=== PATIENT | male | born 1990 | race Caucasian/White ===

== ENCOUNTER 2016-07-08 23:11 | Emergency (ER) | payer SELFPAY ==
[~2016-07-08] VITALS: Ht 172.7 cm; Wt 61.2 kg
[~2016-07-08 23:11] MED LIST: AMOXICILLIN500 MG PO; ATARAX25 MG PO; PREDNICOT10 MG PO
== END 2016-07-09 00:20 | disposition home or self-care (01) ==
LOC: ED 23:11
DX: S99.921A Unspecified injury of right foot, initial encounter (principal); F17.200 Nicotine dependence, unspecified, uncomplicated; W22.8XXA Striking against or struck by other objects, initial encounter; Y93.9 Activity, unspecified; Y92.9 Unspecified place or not applicable; Y99.9 Unspecified external cause status

== ENCOUNTER 2016-09-08 11:51 | Inpatient (IN) | payer SELFPAY ==
[~2016-09-08] VITALS: Ht 172.7 cm; Wt 60.9 kg
--- NOTE | ~2016-09-08 | O ---
[place], [place] OPERATIVE NOTE NAME: LOUIS PERALTA UNIT #: [id number] ROOM: 407 DOCTOR: GIO DONNELLY MD BIRTHDATE: [birth year] DOS: 09/08/2016 PREOPERATIVE DIAGNOSIS: Acute appendicitis. POSTOPERATIVE DIAGNOSIS: Acute appendicitis. PROCEDURE: Laparoscopic appendectomy. SURGEON: Gio Donnelly M.D. PERL SOFTWARE ENGINEER: REGINE. ANESTHESIA: General with endotracheal intubation. INDICATIONS FOR PROCEDURE: This is a 26-year-old gentleman, who comes into the Emergency Room with a history of right lower quadrant pain. A CAT scan showed the acute appendicitis. It was decided to take the patient to the operating room for a laparoscopic possible open appendectomy. The procedure and its complications explained to the patient in detail preoperatively. Complications that were discussed included but were not limited to bleeding, infection, hematoma/seroma/abscess formation, prolonged postoperative pain, damage to underlying vital structures and incisional hernia formation. He agreed to proceed. DESCRIPTION OF PROCEDURE: After identifying the patient, the patient was brought to the operating suite and laid in the supine position. After induction of general anesthesia, a Hodge catheter was inserted into the urinary bladder and the left upper extremity was stuck to the patient's side. The parts were then painted and draped in the usual sterile fashion. A timeout procedure was called. An incision above the umbilicus in a curvilinear fashion was made. The skin and the subcutaneous tissues were incised. The fascia was incised and 2 stay sutures were taken with 0 Vicryl on either side. The peritoneum was opened and a Aj port was introduced. A pneumoperitoneum was created. Under direct vision, a left lower quadrant incision of 10 mm and a suprapubic incision of 5 mm were made and appropriate-size ports were introduced. The patient was placed in a Trendelenburg right-side up position. The appendix was found to be acutely inflamed and it was found in a pelvic position. It was from the overlying omentum with the help of blunt dissection. Thereafter, the appendix was held up with the help of an Endo Connie forceps and the base as well as the mesentery of the appendix was then stapled across with the help of an Endo-DAVID stapler. The appendix was then put in an EndoCatch bag and removed from the peritoneal cavity and sent for histopathological diagnosis. Thereafter, saline was used for irrigation at the site of the appendicular stump as well as the pelvis where there was some free fluid. After hemostasis was confirmed, the suprapubic and the left lower quadrant ports were removed and there was no bleeding seen. The umbilical port was removed and the pneumoperitoneum was decompressed. The fascial defect was approximated with the help of a single 0 Vicryl suture and the stay sutures were tied together. Thereafter, lidocaine 1% plain was used for junction of the skin edges for anesthesia. Thereafter, the edges of the skin were approximated with the help of 4-0 Vicryl in a [place], [place] OPERATIVE NOTE NAME: LOUIS PERALTA UNIT #: [id number] ROOM: [facility] DOCTOR: GIO DONNELLY MD BIRTHDATE: [birth year] subcuticular running fashion. Dressings were given to all the 3 incisions and the patient was extubated uneventfully as well as the Hodge was removed in the OR. He was taken to the recovery room in a stable fashion. There were no complications. Dr. Gio Donnelly, the attending surgeon, was present throughout the operating case. Gio Donnelly MD CM:OPRECORD:OPERATIVE NOTE 04 31 GIO DONNELLY MD 09/08/161932 interface
[2016-09-08 12:17] LABS: BILIRUBIN 1+ (NEGATIVE); BLOOD NEGATIVE (NEGATIVE); CLARITY CLEAR (CLEAR); COLOR YELLOW (YELLOW); GLUCOSE NEGATIVE (NEGATIVE); KETONE 2+ (NEGATIVE); LEUKO ESTERASE NEGATIVE (NEGATIVE); NITRITE NEGATIVE (NEGATIVE); PH 7.5 (5.0-9.0); PROTEIN NEGATIVE (NEGATIVE); UROBILINOGEN 0.2 E.U./dl (0.2-1.0)
[2016-09-08 12:19] LABS: HEMATOCRIT 42.5 % (42.0-52.0); MEAN CORPUSCULAR HGB 30.4 pg (27.0-31.0); MEAN CORPUSCULAR HGB CONC 35.3 g/dl (33.0-37.0); MEAN PLATELET VOLUME 9.4 fl (9.6-12.3); PLATELET COUNT AUTOMATED 249 10*3/uL (130-400); RED BLOOD COUNT 4.94 10*6/uL (4.50-5.90); RED CELL DISTRI WIDTH 13.2 % (0-14.5); WHITE BLOOD COUNT 20.3 10*3/uL (4.8-10.8)
[2016-09-08 12:26] LABS: MUCOUS 1+
[2016-09-08 12:27] LABS: BACTERIA TRACE; RBC 0-2 rbc/hpf (0-2); URINE REFLEX COMMENT NO (NO); WBC 0-2 wbc/hpf (0-5)
[2016-09-08 12:32] LABS: BUN 11 mg/dl (7-24); C-REACTIVE PROTEIN 0.85 MG/DL (0-0.3); CARBON DIOXIDE 24 mmol/L (21-32); CHLORIDE 102 mmol/L (98-107); EST GLOM FILT AFRICAN AMERICAN > 60 ml/min; GLUCOSE 127 mg/dL (65-99); POTASSIUM 3.4 mmol/L (3.5-5.1); SODIUM 139 mmol/L (136-145)
[2016-09-08 12:43] LABS: LYMPHOCYTE # 0.4 10*3/uL (1.3-4.4); MONOCYTE # 0.4 10*3/uL (0.1-1.0); NEUTROPHIL # 19.5 10*3/uL (2.3-7.9); NEUTROPHILS 96 % (47-73); PLATELET SUFFICIENCY NORMAL (NORMAL); TOTAL CELLS COUNTED 100 #CELLS
[2016-09-09 06:39] LABS: HEMATOCRIT 43.3 % (42.0-52.0); HEMOGLOBIN 14.7 g/dl (14.0-18.0); MEAN CORPUSCULAR HGB 30.6 pg (27.0-31.0); MEAN CORPUSCULAR HGB CONC 33.9 g/dl (33.0-37.0); PLATELET COUNT AUTOMATED 268 10*3/uL (130-400); RED CELL DISTRI WIDTH 13.3 % (0-14.5); WHITE BLOOD COUNT 22.6 10*3/uL (4.8-10.8)
[2016-09-09 06:40] LABS: BILIRUBIN, TOTAL 2.7 mg/dl (0.2-1.0); BUN 8 mg/dl (7-24); CARBON DIOXIDE 29 mmol/L (21-32); CHLORIDE 104 mmol/L (98-107); EST GLOM FILT AFRICAN AMERICAN > 60 ml/min; GLUCOSE 72 mg/dL (65-99); POTASSIUM 3.6 mmol/L (3.5-5.1); SGOT/AST 22 IU/L (3-35); SGPT/ALT 20 U/L (12-78); SODIUM 142 mmol/L (136-145); TOTAL PROTEIN 7.3 gm/dL (6.4-8.2)
[2016-09-09 06:41] LABS: MEAN CELL VOLUME 90.2 fl (80.0-94.0)
[2016-09-09 06:46] LABS: ALKALINE PHOSPHATASE 46 U/L (45-117)
[2016-09-09 07:01] LABS: EOSINOPHIL # 0.7 10*3/uL (0-0.4); EOSINOPHILS 3 % (1-4); LYMPHOCYTE # 3.4 10*3/uL (1.3-4.4); MONOCYTE # 0.9 10*3/uL (0.1-1.0); NEUTROPHIL # 17.6 10*3/uL (2.3-7.9); NEUTROPHILS 78 % (47-73); PLATELET SUFFICIENCY NORMAL (NORMAL); TOTAL CELLS COUNTED 100 #CELLS
== END 2016-09-09 11:28 | disposition home or self-care (01) | DRG 343 ==
LOC: ED 11:51 → 4E 18:04
PROVIDERS: Emergency Medicine Emergency Medical Services; Surgery
PROC: 0DTJ4ZZ Resection of Appendix, Percutaneous Endoscopic Approach (ICD-10-PCS; principal; 2016-09-08)
DX: K35.80 Unspecified acute appendicitis (principal); F41.9 Anxiety disorder, unspecified; K59.00 Constipation, unspecified

== ENCOUNTER 2016-10-06 05:13 | Emergency (ER) | payer MEDICAID ==
[~2016-10-06] VITALS: Ht 170.1 cm; Wt 54.4 kg
[2016-10-06 05:57] LABS: BASO # 0.1 10*3/uL (0.0-0.1); BASO % 0.9 % (0.0-1.0); EOS # 0.2 10*3/uL (0.0-0.4); EOS % 3.5 % (1.0-4.0); HEMATOCRIT 39.9 % (42.0-52.0); HEMOGLOBIN 13.8 g/dl (14.0-18.0); LYMPH % 28.8 % (27.0-41.0); MEAN CELL VOLUME 86.6 fl (80.0-94.0); MEAN CORPUSCULAR HGB 29.9 pg (27.0-31.0); MEAN CORPUSCULAR HGB CONC 34.6 g/dl (33.0-37.0); MEAN PLATELET VOLUME 9.4 fl (9.6-12.3); MONO # 0.5 10*3/uL (0.1-1.0); MONO % 7.4 % (3.0-9.0); NEUT % 59.1 % (47.0-73.0); PLATELET COUNT AUTOMATED 200 10*3/uL (130-400); RED BLOOD COUNT 4.61 10*6/uL (4.50-5.90); RED CELL DISTRI WIDTH 12.9 % (0-14.5); WHITE BLOOD COUNT 6.8 10*3/uL (4.8-10.8)
[2016-10-06 06:13] LABS: ALBUMIN 3.9 gm/dl (3.1-4.5); ALKALINE PHOSPHATASE 62 U/L (45-117); BILIRUBIN, TOTAL 0.5 mg/dl (0.2-1.0); BUN 10 mg/dl (7-24); CARBON DIOXIDE 28 mmol/L (21-32); CHLORIDE 105 mmol/L (98-107); EST GLOM FILT AFRICAN AMERICAN > 60 ml/min; GLUCOSE 109 mg/dL (65-99); POTASSIUM 3.4 mmol/L (3.5-5.1); SGOT/AST 16 IU/L (3-35); SGPT/ALT 18 U/L (12-78); SODIUM 141 mmol/L (136-145); TOTAL PROTEIN 6.9 gm/dL (6.4-8.2)
[2016-10-06 06:47] LABS: BILIRUBIN NEGATIVE (NEGATIVE); BLOOD NEGATIVE (NEGATIVE); CLARITY CLEAR (CLEAR); COLOR YELLOW (YELLOW); GLUCOSE NEGATIVE (NEGATIVE); KETONE TRACE (NEGATIVE); LEUKO ESTERASE NEGATIVE (NEGATIVE); NITRITE NEGATIVE (NEGATIVE); PH 5.5 (5.0-9.0); PROTEIN TRACE (NEGATIVE); SPECIFIC GRAVITY 1.025 (1.005-1.030)
[2016-10-06 06:56] LABS: URINE AMPHETAMINES < 1000 (1000ng/ml); URINE BARBITURATES < 200 (200ng/ml); URINE COCAINE < 300 (300ng/ml)
[2016-10-06 07:06] LABS: BACTERIA 1+; MUCOUS 3+; RBC 0-2 rbc/hpf (0-2); URINE REFLEX COMMENT NO (NO)
== END 2016-10-06 08:56 | disposition home or self-care (01) ==
LOC: ED 05:13
PROVIDERS: Emergency Medicine Emergency Medical Services
DX: F11.10 Opioid abuse, uncomplicated (principal); F41.9 Anxiety disorder, unspecified

== ENCOUNTER 2019-06-05 08:35 | Emergency (ER) | payer OTHER ==
[~2019-06-05] VITALS: Ht 172.7 cm; Wt 68.0 kg
[2019-06-05] MEDS ORDERED: PREDNISONE20 M1 PO (08:55)
[2019-06-05] MEDS ORDERED: LIDEX 0.05% CRE15 GM T (08:55)
== END 2019-06-05 09:00 | disposition home or self-care (01) ==
LOC: ED 08:35
DX: L25.2 Unspecified contact dermatitis due to dyes (principal); Z91.09 Other allergy status, other than to drugs and biological substances; Z90.49 Acquired absence of other specified parts of digestive tract

== ENCOUNTER 2024-01-31 05:17 | Inpatient (IN) | payer SELFPAY ==
[~2024-01-31] VITALS: Ht 172.7 cm; Wt 68.0 kg
[2024-01-31] VITALS (10 sets, daily range): BP systolic 103–140; BP diastolic 53–84
[~2024-01-31 05:17] MED LIST changes: +LIDEX 0.05% CRE15 GM T; +PREDNISONE20 M1 PO
[2024-01-31] MEDS ORDERED: Ondansetron Hydrochloride 4 MG/2 ML VIAL IV ONE (06:30)
[2024-01-31] MEDS ORDERED: HYDROmorphONE Hydrochloride 0.5 MG/0.5 ML SYRINGE IV ONE ×2 (06:30→09:25)
[2024-01-31 06:41] LABS: BASO % 0.2 % (0.0-1.0); EOS # 0.1 10*3/uL (0.0-0.4); EOS % 0.4 % (1.0-4.0); HEMATOCRIT 40.8 % (42.0-52.0); LYMPH # 0.9 10*3/uL (1.3-4.4); LYMPH % 5.3 % (27.0-41.0); MEAN CELL VOLUME 91.5 fl (80.0-94.0); MEAN CORPUSCULAR HGB 30.5 pg (27.0-31.0); MEAN CORPUSCULAR HGB CONC 33.3 g/dl (33.0-37.0); MEAN PLATELET VOLUME 9.2 fl (9.6-12.3); MONO # 1.3 10*3/uL (0.1-1.0); MONO % 8.1 % (3.0-9.0); NEUT # 14.1 10*3/uL (2.3-7.9); NEUT % 85.5 % (47.0-73.0); PLATELET COUNT AUTOMATED 231 10*3/uL (130-400); RED BLOOD COUNT 4.46 10*6/uL (4.50-5.90); RED CELL DISTRI WIDTH 12.7 % (0-14.5); WHITE BLOOD COUNT 16.5 10*3/uL (4.8-10.8)
[2024-01-31 06:57] LABS: BUN 11 mg/dl (9-23); CHLORIDE 106 mmol/L (98-107); POTASSIUM 4.1 mmol/L (3.4-5.1)
[2024-01-31] MEDS ORDERED: IOHEXOL 300 MG/ML 100 ML VIAL IV ONE (07:40)
[2024-01-31] MEDS ORDERED: Piperacillin Sodium/Tazobact 50 ML IV ONE (08:40)
[2024-01-31] MEDS ORDERED: Lidocaine Hydrochloride 5 ML AMP SC ONE (10:05)
[2024-01-31] MEDS ORDERED: ETOMIDATE 20 MG/10 ML VIAL IV ONE (10:25)
[2024-01-31] MEDS ORDERED: ACETAMINOPHEN 325 MG TAB PO PRN (12:35)
[2024-01-31] MEDS ORDERED: BISACODYL 5 MG TAB PO PRN (12:35)
[2024-01-31] MEDS ORDERED: Magnesium Hydroxide 30 ML UDC PO PRN (12:35)
[2024-01-31] MEDS ORDERED: Acetaminophen/Hydrocodone 5 MG/325 MG TABLET PO PRN (12:35)
[2024-01-31] MEDS ORDERED: BISACODYL 10 MG SUPP R PRN (12:35)
[2024-01-31] MEDS ORDERED: Ondansetron Hydrochloride 4 MG/2 ML VIAL IV PRN (12:35)
[2024-01-31] MEDS ORDERED: Vancomycin Hydrochloride 1,000 MG in SODIUM CHLORIDE 0.9% 250 ML IV SCH (14:00)
[2024-01-31] MEDS ORDERED: SODIUM CHLORIDE 0.9% 1,000 ML IV SCH (15:15)
[2024-01-31] MEDS ORDERED: Piperacillin Sodium/Tazobact 50 ML IV SCH (16:00)
[2024-02-01 00:55] VITALS: BP 130/60
[2024-02-01 05:58] LABS: BUN 9 mg/dl (9-23); CHLORIDE 108 mmol/L (98-107); POTASSIUM 4.1 mmol/L (3.4-5.1)
[2024-02-01 06:17] LABS: BASO # 0.1 10*3/uL (0.0-0.1); BASO % 0.5 % (0.0-1.0); EOS # 0.2 10*3/uL (0.0-0.4); EOS % 1.9 % (1.0-4.0); HEMATOCRIT 37.8 % (42.0-52.0); LYMPH # 1.1 10*3/uL (1.3-4.4); LYMPH % 12.2 % (27.0-41.0); MEAN CELL VOLUME 92.6 fl (80.0-94.0); MEAN CORPUSCULAR HGB 30.4 pg (27.0-31.0); MEAN CORPUSCULAR HGB CONC 32.8 g/dl (33.0-37.0); MEAN PLATELET VOLUME 9.4 fl (9.6-12.3); MONO # 0.9 10*3/uL (0.1-1.0); MONO % 9.4 % (3.0-9.0); NEUT % 75.6 % (47.0-73.0); PLATELET COUNT AUTOMATED 197 10*3/uL (130-400); RED BLOOD COUNT 4.08 10*6/uL (4.50-5.90); RED CELL DISTRI WIDTH 12.7 % (0-14.5); WHITE BLOOD COUNT 9.3 10*3/uL (4.8-10.8)
[2024-02-01 06:44] VITALS: BP 106/60
[2024-02-01] MEDS ORDERED: Enoxaparin Sodium 40 MG/0.4 ML SYR SC SCH (10:00)
[2024-02-01] MEDS ORDERED: AMOX-CLAV 875-1 EACH PO (12:24)
== END 2024-02-01 13:57 | disposition home or self-care (01) | DRG 872 ==
LOC: ED 05:17 → EDHOLD 10:53
PROVIDERS: Emergency Medicine; Student in an Organized Health Care Education/Training Program; ADMIT Internal Medicine; ATTEND Internal Medicine
PROC: 0H98XZX Drainage of Buttock Skin, External Approach, Diagnostic (ICD-10-PCS; principal; 2024-01-31)
DX: A41.9 Sepsis, unspecified organism (principal); K61.0 Anal abscess; F12.10 Cannabis abuse, uncomplicated; F17.210 Nicotine dependence, cigarettes, uncomplicated; Z71.6 Tobacco abuse counseling